=== PATIENT | male | born 1960 | race Caucasian/White ===

== ENCOUNTER 2018-03-27 00:15 | Emergency (ER) | payer OTHER ==
[~2018-03-27] VITALS: Ht 180.3 cm; Wt 96.3 kg
[~2018-03-27 00:15] MED LIST: AUGMENTIN875TAB OR; CLARITHROMYC250 MG OR; DIABETA5 MG PO; FISH OIL1000 MG OR; HYDROCHLOROT25 MG OR; HYDROCHLOROT25 MG PO; LISINOPRIL10 MG PO; LISINOPRIL5 MG PO; LORTAB 5 PO; MEDDOSEPAK PO; METFORMIN1000 MG PO; METFORMIN500 M1 OR; METFORMIN500 M1 PO; NAPROSYN500 MG OR; NAPROSYN500 MG PO; ONE TOUCH ULTRA 50 XX; PAROXETINE10 MG PO; PAXIL10 MG OR; RED YEAST XX; SLO-NIACIN500 MG PO; SOLU-MEDROL125 MG PO; TRICOR145 MG PO; TRICOR48 MG OR
[2018-03-27] MEDS ORDERED: ZESTRIL5 M1 PO (00:46)
[2018-03-27] MEDS ORDERED: XULTOPHY 100/3.1 INJ (00:46)
[2018-03-27] MEDS ORDERED: ASPIRIN 81 LOW81 MG (00:49)
[2018-03-27] MEDS ORDERED: PAROXETINE10 M1 (00:56)
[2018-03-27] MEDS ORDERED: CIALIS5 MG PO (00:57)
[2018-03-27] MEDS ORDERED: FENOFIBRATE145 MG PO (00:58)
[2018-03-27 02:28] VITALS: BP 143/82
== END 2018-03-27 02:28 | disposition home or self-care (01) | DRG 639 ==
LOC: ED 00:15
DX: E11.649 Type 2 diabetes mellitus with hypoglycemia without coma (principal); Z79.84 Long term (current) use of oral hypoglycemic drugs

== ENCOUNTER → 2018-08-22 | Outpatient (REF) ==
[~2018-08-22] MED LIST changes: +ASPIRIN 81 LOW81 MG; +CIALIS5 MG PO; +FENOFIBRATE145 MG PO; +PAROXETINE10 M1; +XULTOPHY 100/3.1 INJ; +ZESTRIL5 M1 PO
[2018-08-22 09:43] LABS: CHOLESTEROL HDL RATIO 4.6 (<4.4 (CALC))
== END | disposition home or self-care (01) | DRG 951 ==
LOC: LAB 07:02
PROVIDERS: ATTEND Family Medicine
DX: Z02.6 Encounter for examination for insurance purposes (principal)

== ENCOUNTER 2019-03-31 13:53 | Emergency (ER) | payer OTHER ==
[~2019-03-31] VITALS: Ht 180.3 cm; Wt 106.8 kg
[2019-03-31 14:38] LABS: URINE BILIRUBIN - DIPSTICK NEGATIVE (NEGATIVE); URINE BLOOD DIPSTICK TRACE-INTACT (NEGATIVE); URINE COLOR YELLOW; URINE GLUCOSE - DIPSTICK NEGATIVE (NEGATIVE); URINE KETONE NEGATIVE (NEGATIVE); URINE LEUK ESTERASE TRACE (NEGATIVE); URINE NITRITE - DIPSTICK NEGATIVE (Negative); URINE PROTEIN - DIPSTICK NEGATIVE (NEG-TRACE); URINE UROBILINOGEN - DIPSTICK 0.2 E.U./dL (0.2)
[2019-03-31 14:46] VITALS: BP 155/70
[2019-03-31 14:48] LABS: HEMATOCRIT 41.2 % (39.0-50.0); HEMOGLOBIN 13.7 g/dl (14.0-18.0); IMMATURE GRANULOCYTES 0.6 % (0.0-5.0); MEAN CELL VOLUME 90.9 fL CALC (80.0-100.0); MEAN CORPUSCULAR HGB 30.2 pG CALC (26.0-32.0); MEAN CORPUSCULAR HGB CONC 33.3 g/L CALC (32.0-36.0); NEUT# 10.3 thou/uL (1.82-7.42); RED BLOOD COUNT 4.53 mill/uL (4.70-6.10); RED CELL DISTRI WIDTH 12.3 % (11.5-15.5)
[2019-03-31 15:13] LABS: ALBUMIN 4.7 g/dL (3.2-5.0); ANION GAP 18 (6-22 (CALC)); BUN 15 mg/dL (9-20); BUN/CREATININE RATIO 19 (12-20 (CALC)); CARBON DIOXIDE 25 mmol/l (22-30); CHLORIDE 99 mmol/l (95-108); CREATININE 0.8 mg/dL (0.7-1.3); GFR > 60 ML/MIN (>=60 (CALC)); GFR FOR AFR.AMER. > 60 ML/MIN (>=60 (CALC)); SGOT/AST 30 u/l (17-59); SODIUM 137 mmol/l (137-146); TOTAL PROTEIN 7.8 g/dL (6.3-8.2)
[2019-03-31 15:29] LABS: ALKALINE PHOSPHATASE 84 u/l (38-126); BILIRUBIN, TOTAL 0.6 mg/dL (0.0-1.4)
[2019-03-31] MEDS ORDERED: TAM75CAP PO (15:45)
== END 2019-03-31 15:56 | disposition home or self-care (01) | DRG 153 ==
LOC: ED 13:53
PROVIDERS: Family Medicine
DX: J11.1 Influenza due to unidentified influenza virus with other respiratory manifestations (principal); E11.9 Type 2 diabetes mellitus without complications; I10 Essential (primary) hypertension; Z87.442 Personal history of urinary calculi

== ENCOUNTER 2021-05-14 06:07 | Day surgery (SDC) | payer OTHER ==
[~2021-05-14] VITALS: Ht 177.8 cm; Wt 84.4 kg
[~2021-05-14 06:07] MED LIST changes: +ACTOPLUS M15 MG/500 PO; +ASPIRIN ADULT L81 M2 PO; +D3250 MCG PO; +LIPITOR40 M1 PO; +LISINOPRIL; +METFORMIN500 M2 PO; +OZEMPIC2 MG/1.5 M IJ; +PAROXETINE20 MG PO; +PAXIL PO; +PROBIOTI2 PO; +TAM75CAP PO; +ZINC50 M1 PO; +[UNRECOGNIZED DRUG - OTHER] PO; +[UNRECOGNIZED DRUG - OTHER] PO
[2021-05-14 08:20] VITALS: BP 117/75
== END 2021-05-14 08:40 | disposition home or self-care (01) | DRG 951 ==
LOC: ENDO 06:07
PROVIDERS: ATTEND Surgery
PROC: 0DBL8ZX Excision of Transverse Colon, Via Natural or Artificial Opening Endoscopic, Diagnostic (ICD-10-PCS; principal; 2021-05-14)
DX: Z12.11 Encounter for screening for malignant neoplasm of colon (principal); D12.3 Benign neoplasm of transverse colon